=== PATIENT | male | born 1935 | race Caucasian/White ===

== ENCOUNTER 2019-03-30 08:27 | Inpatient (IN) | payer MEDICARE, MEDICAID ==
[~2019-03-30] VITALS: Ht 170.2 cm; Wt 77.2 kg
[2019-03-30] VITALS (42 sets, daily range): BP systolic 82–146; BP diastolic 37–97
[2019-03-30] MEDS ORDERED: IV NORMAL SALINE 1000 ML BAG IV ONE ×2 (08:45→10:30)
--- NOTE | 2019-03-30 08:49 | NUR ---
Patient BIB [id number] from [facility] for c/o sob. Patient nonverbal upon presenting to the department, patient confused, and per EMS he is confused on baseline. Patient appears agitated and constantly trying to remove non-rebreather mask. Patient tachypneic, with short breaths. Crackles noted bilaterally. Cardiovascular perfusion <3 cap refill. Patient in bed at lowest position, sr upx2, call light within reach. Fall precautions implemented per protocol.
[2019-03-30] MEDS ORDERED: ONDANSETRON 4 MG/2 ML VIAL ONE (08:54)
[2019-03-30] MEDS ORDERED: MORPHINE SULFATE 4 MG/1 ML DISP.SYRIN ONE (08:54)
[2019-03-30] MEDS ORDERED: CLOP75TA33 PO (08:57)
[2019-03-30] MEDS ORDERED: NA P133E RC (08:57)
[2019-03-30] MEDS ORDERED: METO-356 PO (08:57)
[2019-03-30] MEDS ORDERED: BISA10SU61 RC (08:57)
[2019-03-30] MEDS ORDERED: ACET-2154 PO ×2 (08:57)
[2019-03-30] MEDS ORDERED: AMIN30LI27 PO (08:57)
[2019-03-30] MEDS ORDERED: OLME20TA13 PO (08:57)
[2019-03-30] MEDS ORDERED: ASCO500P18 PO (08:57)
[2019-03-30] MEDS ORDERED: MAGN400O6 PO (08:57)
[2019-03-30] MEDS ORDERED: MULT-30 PO (08:57)
[2019-03-30] MEDS ORDERED: ASPI-605 PO (08:57)
[2019-03-30] MEDS ORDERED: MONT10TA25 PO (08:57)
[2019-03-30] MEDS ORDERED: VANCOMYCIN IV 1,000 MG in IV DEXTROSE 5% 250 ML IV ONE (09:00)
[2019-03-30] MEDS ORDERED: IPRA0.2S48 IH (09:00)
[2019-03-30] MEDS ORDERED: ONDANSETRON 4 MG/2 ML VIAL IV ONE (09:00)
[2019-03-30] MEDS ORDERED: PIPERACILLIN SODIUM/TAZOBACTAM 3.375 G in IV DEXTROSE 5% 50 ML IV ONE (09:00)
[2019-03-30] MEDS ORDERED: MORPHINE SULFATE 2 MG/1 ML DISP.SYRIN IV ONE (09:00)
[2019-03-30] MEDS ORDERED: ALBU2.5V38 IH (09:00)
[2019-03-30] MEDS ORDERED: PIPERACILLIN/TAZOBACTAM/D5W 50 ML IV ONE (09:01)
[2019-03-30] MEDS ORDERED: VANCOMYCIN IV 200 ML ONE (09:02)
[2019-03-30 09:20] LABS: CARBON DIOXIDE 18 mmol/L (21-32); CHLORIDE 102 mmol/L (98-107); CREATININE 2.6 mg/dL (0.6-1.3); GLUCOSE 128 mg/dL (74-106); POTASSIUM 4.8 mmol/L (3.5-5.1); UREA NITROGEN, BLOOD 53 mg/dL (7-18)
[2019-03-30 09:42] LABS: BASOPHILS % (AUTO) 0.1 % (0.0-2.0); HEMATOCRIT 34.9 % (36.7-47.1); HEMOGLOBIN 11.6 g/dL (12.5-16.3); LYMPHOCYTES # (AUTO) 0.8 K/uL (20.0-40.0); LYMPHOCYTES % (AUTO) 2.7 % (20.5-51.5); MEAN CORPUSCULAR HEMOGLOBIN 31.1 uug (23.8-33.4); MEAN CORPUSCULAR HGB CONC 33 g/dL (32.5-36.3); MEAN CORPUSCULAR VOLUME 93.6 fL (73.0-96.2); MONOCYTES % (AUTO) 3.3 % (0.0-11.0); NEUTROPHILS # (AUTO) 27.5 K/uL (1.8-8.9); NEUTROPHILS % (AUTO) 93.9 % (38.5-71.5); PLATELET COUNT (AUTO) 271 K/uL (152-348); RED BLOOD CELL COUNT(AUTO) 3.73 MIL/uL (4.06-5.63); WHITE BLOOD COUNT (AUTO) 29.2 K/uL (3.6-10.2)
[2019-03-30] MEDS ORDERED: DILTIAZEM HCL 50 MG IV ONE (09:43)
[2019-03-30] MEDS ORDERED: DILTIAZEM HCL 25 MG IV IV ONE ×2 (09:45→10:30)
[2019-03-30 09:58] LABS: BAND % (MANUAL) 12 % (0-10); METAMYELOCYTES % 1 % (0-1); MONOCYTES % (MANUAL) 2 % (2-10); NEUTROPHILS % (MANUAL) 85 % (42-75)
[2019-03-30] MEDS ORDERED: DIGOXIN 500 MCG/2 ML AMP ONE (09:58)
[2019-03-30] MEDS ORDERED: DIGOXIN 500 MCG/2 ML AMP IV ONE (10:00)
[2019-03-30 10:06] LABS: ALKALINE PHOSPHATASE 65 U/L (50-136); BILIRUBIN,DIRECT 0.3 mg/dL (0.0-0.2); BILIRUBIN,TOTAL 0.7 mg/dL (0.1-1.0)
[2019-03-30 10:07] LABS: ALANINE AMINOTRANSFERASE < 6 U/L (16-63); ASPARTATE AMINOTRANSFERASE 21 U/L (15-37)
[2019-03-30 10:09] LABS: TOTAL PROTEIN, SERUM 13.4 g/dL (6.4-8.2)
--- NOTE | 2019-03-30 10:10 | NUR ---
Dr. Castano paged for admission, awaiting call back.
--- NOTE | 2019-03-30 10:20 | NUR ---
Family here at bedside.
[2019-03-30] MEDS ORDERED: DILTIAZEM HCL IV 125 MG in IV DEXTROSE 5% 100 ML IV ONE (10:30)
[2019-03-30] MEDS ORDERED: LORAZEPAM 2 MG/1 ML VIAL ONE (10:43)
[2019-03-30] MEDS ORDERED: LORAZEPAM 2 MG/1 ML VIAL IV ONE (10:45)
--- NOTE | 2019-03-30 10:49 | NUR ---
2nd call for Eyad, still awaiting call back
--- NOTE | 2019-03-30 11:02 | NUR ---
Report given to MAUREEN Parks
[2019-03-30] MEDS ORDERED: DILTIAZEM HCL IV 125 MG in IV NORMAL SALINE 100 ML IV PRN (11:15)
[2019-03-30 11:17] LABS: *BILIRUBIN,URIN NEGATIVE (NEGATIVE); *BLOOD, URINE 3+ (NEGATIVE); *CLARITY,URINE SLIGHTLY CLOUDY (CLEAR); *COLOR,URINE YELLOW (YELLOW); *KETONES,URINE NEGATIVE (NEGATIVE); *UROBILINOGEN,URINE 0.2 E.U./dl (NORMAL); LEUKOCYTE ESTERASE ,URINE NEGATIVE (NEGATIVE); NITRITE, URINE NEGATIVE (NEGATIVE); PH,URINE 5.5 (5.0-8.0); UGLUCOSE NEGATIVE (NEGATIVE)
[2019-03-30 11:35] LABS: RBC,URINE 20-50 /HPF (0-3)
[2019-03-30 11:36] LABS: BACTERIA,URINE NONE SEEN /HPF (NONE SEEN); SQUAMOUS EPITHELIAL CELL,UR FEW /HPF (NONE SEEN)
[2019-03-30 11:37] LABS: MUCUS,URINE FEW /LPF (0-FEW); URINE AMORPHOUS URATE FEW /HPF
--- NOTE | 2019-03-30 12:10 | NUR ---
admitted to room ccu4 for PNA, CHF and atrial fib. on Cardizem drip at 10 mg/min
--- NOTE | 2019-03-30 12:22 | NUR ---
Patient transported to CCU with MICHI Waite. In stable condition.
[2019-03-30] MEDS ORDERED: PHENYLEPHRINE IV 40 MG in IV DEXTROSE 5% 250 ML IV PRN (12:45)
[2019-03-30] MEDS ORDERED: FUROSEMIDE 20 MG/2 ML VIAL IV ONE (12:45)
[2019-03-30] MEDS ORDERED: Z GUARD REMEDY PASTE 57 GM TUBE TOP PRN (12:45)
[2019-03-30] MEDS ORDERED: ONDANSETRON 4 MG/2 ML VIAL IV PRN (12:45)
[2019-03-30] MEDS ORDERED: ACETAMINOPHEN 650 MG SUPP.RECT RC PRN (12:45)
--- NOTE | 2019-03-30 13:00 | NUR ---
family ( and son ) at the bedside. updated with patient's condition
[2019-03-30] MEDS: LEVALBUTEROL HCL NEB 0.63 MG/3 ML NEBU NEB PRN (13:24)
--- NOTE | 2019-03-30 13:24 | NUR ---
RT here to give patient breathing treatmnet and suctioning. patient congested and desaturating doen to the 80%
--- NOTE | 2019-03-30 13:30 | NUR ---
PHARMACY CLINICAL NOTES: (VANCOMYCIN DOSING) S: 84-year-old male, who is having cough and respiratory distress. MD ordered Vancomycin and Zosyn. O: BUN/SCR 53/2.6, WBC 29.2, T 98, t 1/2 34.6 HRS, DOSING WT 150 LBS A/P: PT received 1000 mg IVPB in ER @ 10:00. Regimen of Vancomycin 1gm q40 will yield peak of 38 and trough of 17. Will dose next Vancomycin 40 hr post dose in ER today. will continue monitoring renal fxn and adjust the dose as necessary.
--- NOTE | 2019-03-30 13:43 | NUR ---
started on neosynephrine drip to keep sbp >90
[2019-03-30] MEDS: AMIODARONE HCL IV 900 MG in IV DEXTROSE 5% 482 ML IV PRN (13:44)
--- NOTE | 2019-03-30 13:44 | NUR ---
cordarone started at 1 mg/min. cardizem dcd
[2019-03-30] MEDS: IV D5/ 0.9% NACL 1,000 ML IV PRN (13:57)
--- NOTE | 2019-03-30 14:00 | NUR ---
echo done at the bedside. ef 60%
[2019-03-30] MEDS: MORPHINE SULFATE 2 MG/1 ML DISP.SYRIN IV PRN ×2 (14:57→19:33)
--- NOTE | 2019-03-30 14:57 | NUR ---
patient woke up and very restless. medicated with morphine 1mg IV. wrist restraints applied for safety
[2019-03-30 16:27] LABS: ABG BASE EXCESS -7.1 mmol/L; ABG HCO3 18.2 mmol/L; ABG PCO2 35.8 mmHg (35.0-45.0); ABG PH 7.323 (7.350-7.450); ABG PO2 170.8 mmHg (75.0-100.0); ABG SITE LEFT RADIAL; ABG TOTAL HEMOGLOBIN 10.9 G/dL (13.5-18.0); COHb 0.6 % (0.5-1.5); MetHb 0.2 % (0.0-1.5); O2Hb 98.5 % (94.0-97.0)
[2019-03-30] MEDS ORDERED: PIPERACILLIN/TAZO 2.25 G in IV DEXTROSE 5% 50 ML IV SCH (18:00)
[2019-03-30] MEDS ORDERED: PHENYLEPHRINE IV 80 MG in IV DEXTROSE 5% 250 ML IV PRN (18:45)
--- NOTE | 2019-03-30 19:30 | NUR ---
Report received. Patient admitted today for SEPSIS, PNA and CHF. Extremely restless, non verbal with bilateral soft restraints for safety. On continuous Amiodarone drip via PICC line ANISHA. Neosynephrine drip held for now BP 130 systole. Will monitor closely. Assessment done. Addendum: 03/31/19 at 0506 by PRERNA ARELLANO RN Amended: Links added.
--- NOTE | 2019-03-30 19:33 | NUR ---
Medicated with Morphine for generalized discomfort. Suctioned nasally by Tc RT for thick bloody secretions. With increased restlessness during suctioning. Reoriented PRN.
[2019-03-30] MEDS: PHENYLEPHRINE IV 80 MG in IV DEXTROSE 5% 250 ML IV PRN (20:22)
[2019-03-30] MEDS: PIPERACILLIN SODIUM/TAZOBACTAM 3.375 G in IV DEXTROSE 5% 50 ML IV SCH (21:12)
[2019-03-30] MEDS: LORAZEPAM 2 MG/1 ML VIAL IV PRN (21:13)
[2019-03-31] VITALS (82 sets, daily range): BP systolic 82–152; BP diastolic 35–81
[2019-03-31] MEDS: IV D5/ 0.9% NACL 1,000 ML IV PRN ×2 (04:11→17:55)
[2019-03-31] MEDS: MORPHINE SULFATE 2 MG/1 ML DISP.SYRIN IV PRN ×4 (04:11→22:58)
[2019-03-31] MEDS: LORAZEPAM 2 MG/1 ML VIAL IV PRN ×3 (05:20→20:09)
[2019-03-31 05:29] LABS: ALANINE AMINOTRANSFERASE < 6 U/L (16-63); ALKALINE PHOSPHATASE 46 U/L (50-136); ASPARTATE AMINOTRANSFERASE 25 U/L (15-37); BILIRUBIN,TOTAL 0.4 mg/dL (0.2-1.0); CARBON DIOXIDE 21 mmol/L (21-32); CHLORIDE 105 mmol/L (98-107); CHOLESTEROL < 50 mg/dL (<200); CREATININE 3.2 mg/dL (0.6-1.3); GLUCOSE 103 mg/dL (74-106); HDL CHOLESTEROL 13 mg/dL (40-60); MAGNESIUM 1.6 mg/dL (1.8-2.4); PHOSPHOROUS 7.3 mg/dL (2.5-4.9); POTASSIUM 4.8 mmol/L (3.5-5.1); TRIGLYCERIDES 76 MG/DL (30-150); UREA NITROGEN, BLOOD 67 mg/dL (7-18)
[2019-03-31 05:45] LABS: BASOPHILS % (AUTO) 0.1 % (0.0-2.0); EOSINOPHILS % (AUTO) 0.2 % (0.0-7.0); HEMATOCRIT 28.4 % (36.7-47.1); HEMOGLOBIN 9.1 g/dL (12.5-16.3); LYMPHOCYTES # (AUTO) 1.4 K/uL (20.0-40.0); LYMPHOCYTES % (AUTO) 7.1 % (20.5-51.5); MEAN CORPUSCULAR HEMOGLOBIN 30.2 uug (23.8-33.4); MEAN CORPUSCULAR HGB CONC 32 g/dL (32.5-36.3); MEAN CORPUSCULAR VOLUME 94.3 fL (73.0-96.2); MONOCYTES # (AUTO) 0.7 K/uL (2.0-10.0); MONOCYTES % (AUTO) 3.6 % (0.0-11.0); NEUTROPHILS # (AUTO) 17.7 K/uL (1.8-8.9); PLATELET COUNT (AUTO) 226 K/uL (152-348); RED BLOOD CELL COUNT(AUTO) 3.01 MIL/uL (4.06-5.63); WHITE BLOOD COUNT (AUTO) 19.8 K/uL (3.6-10.2)
--- NOTE | 2019-03-31 07:13 | NUR ---
No neuro changes; remains non verbal. Still with periods of restlessness. Medicated with Ativan IV PRN.
--- NOTE | 2019-03-31 08:36 | NUR ---
medicated for generalized discomfort. patient has mittens on but very restless Addendum: 03/31/19 at 0836 by MIGDALIA MARTINEZ RN Amended: Links added.
[2019-03-31 09:00] LABS: ABG HCO3 19.7 mmol/L; ABG PCO2 50.5 mmHg (35.0-45.0); ABG PO2 90.4 mmHg (75.0-100.0); ABG SITE RIGHT BRACHIAL; ABG TOTAL HEMOGLOBIN 10.8 G/dL (13.5-18.0); COHb 0.9 % (0.5-1.5); MetHb 0.1 % (0.0-1.5); O2Hb 95.5 % (94.0-97.0)
[2019-03-31] MEDS: PANTOPRAZOLE SODIUM 40 MG VIAL IV SCH (09:10)
[2019-03-31] MEDS: PIPERACILLIN SODIUM/TAZOBACTAM 3.375 G in IV DEXTROSE 5% 50 ML IV SCH (09:11)
--- NOTE | 2019-03-31 09:13 | NUR ---
seen by dr Landry. orders received Addendum: 03/31/19 at 0913 by MIGDAILA MARTINEZ RN Amended: Links added.
[2019-03-31] MEDS: MAGNESIUM SULFATE/D5W 100 ML IV SCH ×2 (09:32→12:19)
[2019-03-31] MEDS: LEVALBUTEROL HCL NEB 0.63 MG/3 ML NEBU NEB PRN (10:35)
--- NOTE | 2019-03-31 12:19 | NUR ---
PHARMACY CLINICAL NOTES: (VANCOMYCIN DOSING) S: 84-year-old male, who is having cough and respiratory distress. ordered Vancomycin and Zosyn. O: BUN/SCR 67/3.2, WBC 19.8, T 97.9 , DOSING WT 150 LBS A/P: Since renal function is further decreased, will start dosing by fall off random level. Vancomycin random is on order for today at 1500. Will follow the level for further dosing. Addendum: 03/31/19 at 1628 by SAIGE PEREZ ADM VANCOMYCIN RANDOM TODAY AT 1500:8.6. WILL ADMINISTER 1GRAM TODAY . RX WILL DECIDE NEXT RANDOM TOMORROW WHEN AM LABS ARE AVAILABLE(SCR IS TRENDING UP)
[2019-03-31] MEDS: AMIODARONE HCL IV 900 MG in IV DEXTROSE 5% 482 ML IV PRN (12:26)
--- NOTE | 2019-03-31 12:36 | NUR ---
medicated for restlessness. Addendum: 03/31/19 at 1236 by MIGDALIA MARTINEZ RN Amended: Links added.
--- NOTE | 2019-03-31 13:46 | NUR ---
seen by dr Barber, cardiology. amiodarone fernando collins/shilpa Addendum: 03/31/19 at 1346 by MIGDALIA MARTINEZ RN Amended: Links added.
--- NOTE | 2019-03-31 15:15 | NUR ---
medicated for generalized restlessness Addendum: 03/31/19 at 1516 by MIGDALIA MARTINEZ RN Amended: Links added.
[2019-03-31] MEDS ORDERED: VANCOMYCIN IV 1,000 MG in IV DEXTROSE 5% 250 ML IV ONE (17:30)
[2019-03-31] MEDS: PHENYLEPHRINE IV 80 MG in IV DEXTROSE 5% 250 ML IV PRN ×4 (17:54→23:27)
[2019-03-31] MEDS: ALBUTEROL SULFATE 1.25 MG/3 ML NEBU NEB PRN (19:21)
--- NOTE | 2019-03-31 20:00 | NUR ---
RECEIVED PT VERBALLY NONRESPONSIVE ON MITTENS HEATH. FOR PT SAFETY. ON BIPAP I-15/E-5, RATE-16, FIO2-100% W/ O2 SAT OF 99%.SUCTIONED ORALLY & INTRANASALLY USING RED LING W/ MODERATE THICK TANNISH MUCOUS..ON NEOSYNEPHRINE DRIP @ 60 MCQ/MIN.VIA PICC LINE ON ANISHA. REPOSITIONED ON HIS SIDE W/ HOB ELEVATED.
[2019-03-31] MEDS: MEROPENEM 500 MG in IV NORMAL SALINE 50 ML IV SCH (21:05)
--- NOTE | 2019-03-31 23:05 | NUR ---
HS CARE DONE. SUCTIONED & REPOSITIONED W/ HOB ELEVATED.
--- NOTE | 2019-03-31 23:27 | NUR ---
Received patient on 100% NRB mask. Placed on Bipap 15/5,rr 16, Titrating O2 to maintain SpO2 > 92%. Suctioned small to moderate amounts of thick blood. Patient tolerating ordered settings. PRN treatments administered and tolerated well, no adverse reactions. Will continue to monitor.
[2019-04-01] VITALS (89 sets, daily range): BP systolic 89–196; BP diastolic 26–155
[2019-04-01] MEDS: ALBUTEROL SULFATE 1.25 MG/3 ML NEBU NEB PRN (00:57)
[2019-04-01] MEDS ORDERED: VANCOMYCIN IV 1,000 MG in IV DEXTROSE 5% 250 ML IV SCH (02:00)
[2019-04-01] MEDS: LORAZEPAM 2 MG/1 ML VIAL IV PRN ×3 (03:08→16:00)
--- NOTE | 2019-04-01 04:45 | NUR ---
AM CARE DONE. ORAL CARE DONE REPOSITIONED W/ HOB ELEVATED.
[2019-04-01 04:57] LABS: BASOPHILS % (AUTO) 0.1 % (0.0-2.0); EOSINOPHILS # (AUTO) 0.1 K/uL (0.0-0.7); EOSINOPHILS % (AUTO) 0.5 % (0.0-7.0); HEMATOCRIT 30.3 % (36.7-47.1); HEMOGLOBIN 9.6 g/dL (12.5-16.3); LYMPHOCYTES # (AUTO) 1.1 K/uL (20.0-40.0); LYMPHOCYTES % (AUTO) 4.7 % (20.5-51.5); MEAN CORPUSCULAR HEMOGLOBIN 30.1 uug (23.8-33.4); MEAN CORPUSCULAR HGB CONC 32 g/dL (32.5-36.3); MEAN CORPUSCULAR VOLUME 95.4 fL (73.0-96.2); MONOCYTES # (AUTO) 1.1 K/uL (2.0-10.0); MONOCYTES % (AUTO) 4.9 % (0.0-11.0); NEUTROPHILS # (AUTO) 20.2 K/uL (1.8-8.9); NEUTROPHILS % (AUTO) 89.8 % (38.5-71.5); PLATELET COUNT (AUTO) 224 K/uL (152-348); RED BLOOD CELL COUNT(AUTO) 3.18 MIL/uL (4.06-5.63); WHITE BLOOD COUNT (AUTO) 22.6 K/uL (3.6-10.2)
[2019-04-01 05:08] LABS: CARBON DIOXIDE 20 mmol/L (21-32); CHLORIDE 107 mmol/L (98-107); CREATININE 3.7 mg/dL (0.6-1.3); GLUCOSE 105 mg/dL (74-106); MAGNESIUM 2.2 mg/dL (1.8-2.4); PHOSPHOROUS 6.2 mg/dL (2.5-4.9); POTASSIUM 5.2 mmol/L (3.5-5.1); UREA NITROGEN, BLOOD 78 mg/dL (7-18)
--- NOTE | 2019-04-01 07:20 | NUR ---
Received patient on on Bipap 15/5,rr 16, Patient tolerating ordered settings. PRN Morphine to be administered as patient is restless and possibly in bed with thrashing and grimacing. Patients jenkins is draining, air mattress inflated and scd's on. RT at bedside ready to do deep suctioning as patient sounds very congested.
--- NOTE | 2019-04-01 07:25 | NUR ---
Pt received on BIPAP with ordered settings. Tolerating settings well. Sxn'd thick bloody secretions. Protecta-Gel in place. Massaged Pt's face periodically.
[2019-04-01] MEDS: MORPHINE SULFATE 2 MG/1 ML DISP.SYRIN IV PRN ×3 (07:47→21:19)
--- NOTE | 2019-04-01 08:25 | NUR ---
Reported possible afib on monitor, asked Dr. Landry for EKG order.
[2019-04-01 08:53] LABS: ABG BASE EXCESS -9.4 mmol/L; ABG HCO3 16.1 mmol/L; ABG PCO2 33.7 mmHg (35.0-45.0); ABG PH 7.297 (7.350-7.450); ABG PO2 156.3 mmHg (75.0-100.0); ABG SITE RIGHT BRACHIAL; COHb 0.8 % (0.5-1.5); MetHb 0.1 % (0.0-1.5); O2Hb 98.7 % (94.0-97.0); VENT MODE BIPAP
[2019-04-01] MEDS: PANTOPRAZOLE SODIUM 40 MG VIAL IV SCH (09:11)
[2019-04-01] MEDS: MEROPENEM 500 MG in IV NORMAL SALINE 50 ML IV SCH ×2 (09:14→21:17)
[2019-04-01] MEDS ORDERED: AMIODARONE HCL IV 900 MG in IV DEXTROSE 5% 482 ML IV PRN (09:15)
[2019-04-01] MEDS: IV D5/ 0.9% NACL 1,000 ML IV PRN (09:15)
--- NOTE | 2019-04-01 09:15 | NUR ---
Received orders from Dr. Landry to restart amioderone without bolus. Unable to get a hold of [facility] reported to Dr. Landry.
--- NOTE | 2019-04-01 10:57 | NUR ---
PHARMACY CLINICAL NOTES: (VANCOMYCIN DOSING) S: 84-year-old male, who is having cough and respiratory distress. ordered Vancomycin and Zosyn. O: BUN/SCR 78/3.7, WBC 22.6, T 97.8 , DOSING WT 150 LBS Random 03/31 @1500: 8.6 Random today @1500 pending A/P: Since renal function continues to decrease, will continue dosing by fall off random level. Last dose of vanco was yesterday of 1gm @1730. Vancomycin random is on order for today at 1500. Will follow the level for further dosing. Addendum: 04/01/19 at 1529 by ALANNA MACKAY ADM RANDOM CAME BACK 14.5 TODAY AT 1455. DOSED 1GM VANCO X1 FOR TODAY AT 1600. WILL CHECK SCR IN AM AND DECIDE WHEN TO ORDER NEXT RANDOM. WILL FOLLOW
--- NOTE | 2019-04-01 11:07 | NUR ---
Dr. Huizar at bedside. Notified of thick blood sputum secretions.
--- NOTE | 2019-04-01 12:10 | NUR ---
Dr. Fleming at bedside.
[2019-04-01] MEDS ORDERED: VANCOMYCIN IV 1,000 MG in IV DEXTROSE 5% 250 ML IV ONE (16:00)
--- NOTE | 2019-04-01 16:00 | NUR ---
Trial of converstion to nonrebreather. patient desaturated to 83%, returned patient back to bipap.
--- NOTE | 2019-04-01 18:40 | NUR ---
Patient has been restless all day despite administration of ativan and morphine as ordered. BP maintained as ordered and Amioderon started this morning. Patient continues to be on Bipap at this time, jenkins draining, air mattress inflated, No oral intake, or BM noted this shift. mittens for safety and patient pulling on lines. 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 Critical blood cultures reported to Cheya, and received orders to continue vanco per pharmacy dosing.
[2019-04-01] MEDS: PHENYLEPHRINE IV 80 MG in IV DEXTROSE 5% 250 ML IV PRN (19:15)
--- NOTE | 2019-04-01 19:45 | NUR ---
DR HUNT WAS HERE TO SEE PATIENT , GIVEN AN UPDATE ON PATIENT'S CONDITION
--- NOTE | 2019-04-01 20:00 | NUR ---
BIPAP SETTING IS 15/5 AT 70 % FIO2
--- NOTE | 2019-04-01 20:00 | NUR ---
BILATERAL EYES ARE RED , CLEAN AND KEPT MOIST AND PAT DRY
[2019-04-01] MEDS: MUPIROCIN 2% OINT 22 GM TUBE NS SCH (21:19)
--- NOTE | 2019-04-01 23:00 | NUR ---
US TECH WAS NOTIFIEDOF STAT ORDER OF US KIDNEYS
[2019-04-02] VITALS (89 sets, daily range): BP systolic 85–165; BP diastolic 23–96
--- NOTE | 2019-04-02 | NUR ---
US OF THE KIDNEYS DONE
[2019-04-02] MEDS: LORAZEPAM 2 MG/1 ML VIAL IV PRN ×2 (00:23→08:43)
[2019-04-02] MEDS: IV D5/ 0.9% NACL 1,000 ML IV PRN ×2 (00:54→16:10)
[2019-04-02] MEDS: MORPHINE SULFATE 2 MG/1 ML DISP.SYRIN IV PRN ×5 (02:06→23:27)
--- NOTE | 2019-04-02 02:39 | NUR ---
PT ON CONT B/PAP WITH FULL MASK IN PLACE, PT VERY RESTLESS, AMD MOVING A LOT IN BED, PT DOES BREATH RAPID AT TIMES, [id number], NO SETTINGS ON BI/PAP CHANGES, FIO2 @ 70, ADJUST MASK AT TIMES.Cassie GOYAL RCP Addendum: 04/02/19 at 0241 by DRISS GOYAL RT Amended: Links added.
--- NOTE | 2019-04-02 03:09 | NUR ---
* Exhibits decreased drainage at site * Exhibits no s/s of infection * Exhibits a decrease in lesion size * Maintains nutritional status * Maintains hydration status * Maintains optimal lab values Addendum: 04/02/19 at 0309 by SULEIMAN HARRIS RN Amended: Links added. Addendum: 04/02/19 at 0310 by SULEIMAN HARRIS RN Amended: Links alice.
[2019-04-02 05:13] LABS: BASOPHILS % (AUTO) 0.1 % (0.0-2.0); EOSINOPHILS % (AUTO) 0.2 % (0.0-7.0); HEMATOCRIT 32.7 % (36.7-47.1); HEMOGLOBIN 10.5 g/dL (12.5-16.3); LYMPHOCYTES # (AUTO) 0.8 K/uL (20.0-40.0); LYMPHOCYTES % (AUTO) 3.1 % (20.5-51.5); MEAN CORPUSCULAR HEMOGLOBIN 30.3 uug (23.8-33.4); MEAN CORPUSCULAR HGB CONC 32 g/dL (32.5-36.3); MEAN CORPUSCULAR VOLUME 94.4 fL (73.0-96.2); MONOCYTES # (AUTO) 1.5 K/uL (2.0-10.0); MONOCYTES % (AUTO) 5.9 % (0.0-11.0); NEUTROPHILS # (AUTO) 22.5 K/uL (1.8-8.9); NEUTROPHILS % (AUTO) 90.7 % (38.5-71.5); PLATELET COUNT (AUTO) 240 K/uL (152-348); RED BLOOD CELL COUNT(AUTO) 3.47 MIL/uL (4.06-5.63); WHITE BLOOD COUNT (AUTO) 24.9 K/uL (3.6-10.2)
[2019-04-02 05:23] LABS: CARBON DIOXIDE 19 mmol/L (21-32); CHLORIDE 109 mmol/L (98-107); CREATININE 3.4 mg/dL (0.6-1.3); GLUCOSE 112 mg/dL (74-106); PHOSPHOROUS 4.6 mg/dL (2.5-4.9); POTASSIUM 5.2 mmol/L (3.5-5.1)
[2019-04-02 05:33] LABS: UREA NITROGEN, BLOOD 82 mg/dL (7-18)
--- NOTE | 2019-04-02 06:11 | NUR ---
NOTIFIED THE DOCTOR OF LAB RESULTS THIS MORNING , NO ORDERS RECEIVED
--- NOTE | 2019-04-02 07:00 | NUR ---
RESTING , AMIODARONE , NEOSYNEPHRINE AND IV FLUIDS ARE RUNNING , IV INTACT BIPAP 15/5 70%
--- NOTE | 2019-04-02 07:25 | NUR ---
Received patient on on Bipap 15/5,rr 16, Patient tolerating ordered settings. PRN Morphine to be administered as patient is restless and possibly in bed with thrashing and grimacing. Patients jenkins is draining, air mattress inflated and scd's on. Patient sounds very congested.
[2019-04-02] MEDS: ALBUTEROL SULFATE 1.25 MG/3 ML NEBU NEB PRN (07:40)
[2019-04-02] MEDS: PANTOPRAZOLE SODIUM 40 MG VIAL IV SCH (08:28)
[2019-04-02] MEDS: MUPIROCIN 2% OINT 22 GM TUBE NS SCH ×2 (08:34→20:26)
[2019-04-02] MEDS: MEROPENEM 500 MG in IV NORMAL SALINE 50 ML IV SCH ×2 (08:41→20:23)
[2019-04-02 09:03] LABS: ABG BASE EXCESS -9.8 mmol/L; ABG HCO3 16.9 mmol/L; ABG PCO2 39.6 mmHg (35.0-45.0); ABG PH 7.247 (7.350-7.450); ABG PO2 66.1 mmHg (75.0-100.0); ABG SITE LEFT RADIAL; ABG TOTAL HEMOGLOBIN 11.5 G/dL (13.5-18.0); COHb 0.8 % (0.5-1.5); MetHb 0.1 % (0.0-1.5); O2Hb 91.3 % (94.0-97.0); VENT MODE BIPAP
[2019-04-02 09:12] LABS: BAND % (MANUAL) 9 % (0-10); LYMPHOCYTES % (MANUAL) 4 % (20-40); MONOCYTES % (MANUAL) 6 % (2-10); NEUTROPHILS % (MANUAL) 81 % (42-75)
--- NOTE | 2019-04-02 09:15 | NUR ---
PT ON BIPAP WITH SETTINGS ON IPAP15, EPAP5, RATE 16, FIO2 70%. PT TOLERATING BIPAP FINE. PRN BREATHING TX ADMINISTERED. NT SUCTIONED PERFORMED. PT HAD LARGE AMOUNT OF THICK YELLOW, PINK TINGED SECRETIONS. ABG DONE. CRITICAL VALUES ENDORSED TO MAUREEN Shankar . FIO2 INCREASED TO 80%. WILL CONTINUE TO MONITOR.
--- NOTE | 2019-04-02 09:38 | NUR ---
PHARMACY CLINICAL NOTES: (VANCOMYCIN DOSING) S: Continue Vancomycin dosing on 84 yr old patient for septic shock, GPC bacteremia and HCAP(ID note) O: BUN/SCR 82/3.4, WBC 24.9 T 97.9 , DOSING WT 150 LBS Random 03/31 @1500: 8.6 Random 04/01 @1500 :14.5 A/P: Since renal function continues to decrease, will continue dosing by fall off random level. Last dose of vanco was yesterday of 1gm @1600. Vancomycin random is on order for today at 1800. Will follow the level for further dosing. Addendum: 04/02/19 at 1913 by STEVE PENA Vancomycin random level @ 18:25 was 19.0 . Will schedule the next Vancomycin @ 2300. and will continue to follow up.
[2019-04-02] MEDS ORDERED: AMIODARONE HCL IV 900 MG in IV DEXTROSE 5% 482 ML IV ONE (12:00)
[2019-04-02] MEDS ORDERED: MORPHINE SULFATE 2 MG/1 ML DISP.SYRIN IV PRN (12:15)
[2019-04-02] MEDS ORDERED: LORAZEPAM 2 MG/1 ML VIAL IV PRN (12:15)
[2019-04-02] MEDS ORDERED: LEVALBUTEROL HCL NEB 0.63 MG/3 ML NEBU NEB PRN (13:30)
[2019-04-02] MEDS ORDERED: AMIODARONE HCL IV 900 MG in IV DEXTROSE 5% 482 ML IV PRN (14:08)
[2019-04-02] MEDS: PHENYLEPHRINE IV 80 MG in IV DEXTROSE 5% 250 ML IV PRN (16:08)
[2019-04-02] MEDS ORDERED: POLYVINYL ALCOHOL OPHT DROPS 15 ML BOTTLE EACHEYE PRN (16:30)
--- NOTE | 2019-04-02 19:26 | NUR ---
Patient has been restless all day despite administration of ativan and morphine as ordered. BP maintained as ordered and Amioderon started this morning. Patient continues to be on Bipap at this time, jenkins draining, air mattress inflated, No oral intake, or BM noted this shift. mittens for safety and patient pulling on lines. Safety precautions maintained and patient on isolation MRSA nares.
--- NOTE | 2019-04-02 20:00 | NUR ---
PT IS ON A BIPAP 15/5 RATE OF 16 FIO2 OF 80 % , RESTING AND SLEEPING COMFORTABLY A THIS TIME
--- NOTE | 2019-04-02 20:00 | NUR ---
Estela clemens REPROGRAPHICS ASSOCIATE IS HERE TO SEE PATIENT
--- NOTE | 2019-04-02 20:59 | NUR ---
PT ON CONT BI/PAP WITH FULL MASK, WITH SETTINGS, 15/5, RATE 16. FIO2 @ 80, PT TENDS TO BREATH RAPID AT TIMES, RESTLESS AT TIMES, NO CHANGES MADE, PT GIVEN SEDATION AT TIMES, ADJUST MASK AT TIMES, . Cassie GOYAL RCP Addendum: 04/02/19 at 2102 by DRISS GOYAL RT Amended: Links added.
[2019-04-02] MEDS ORDERED: VANCOMYCIN IV 1,000 MG in IV DEXTROSE 5% 250 ML IV ONE (23:00)
--- NOTE | 2019-04-02 23:00 | NUR ---
RESTLESS , TACHYCARDIC , MEDICATED FOR RELAXATION , CHANGED POSITION
[2019-04-03] VITALS (65 sets, daily range): BP systolic 0–136; BP diastolic 0–70
--- NOTE | 2019-04-03 01:41 | NUR ---
* Exhibits granulation/healing at site * Exhibits decreased drainage at site * Exhibits no s/s of infection * Exhibits a decrease in lesion size * Maintains nutritional status Addendum: 04/03/19 at 0142 by SULEIMAN HARRIS RN Amended: Links added. Addendum: 04/03/19 at 0142 by SULEIMAN HARRIS RN Amended: Links alice.
--- NOTE | 2019-04-03 01:42 | NUR ---
* Maintains vital signs WNL * Evidences no purulent drainage from wounds, incisions, and tubes * Maintains optimal lab values Addendum: 04/03/19 at 0142 by SULEIMAN HARRIS RN Amended: Links added.
[2019-04-03 05:25] LABS: BASOPHILS % (AUTO) 0.1 % (0.0-2.0); EOSINOPHILS # (AUTO) 0.1 K/uL (0.0-0.7); EOSINOPHILS % (AUTO) 0.3 % (0.0-7.0); HEMATOCRIT 32.7 % (36.7-47.1); HEMOGLOBIN 10.3 g/dL (12.5-16.3); LYMPHOCYTES # (AUTO) 0.9 K/uL (20.0-40.0); LYMPHOCYTES % (AUTO) 4.1 % (20.5-51.5); MEAN CORPUSCULAR HEMOGLOBIN 30.1 uug (23.8-33.4); MEAN CORPUSCULAR HGB CONC 32 g/dL (32.5-36.3); MEAN CORPUSCULAR VOLUME 95.4 fL (73.0-96.2); MONOCYTES # (AUTO) 1.2 K/uL (2.0-10.0); MONOCYTES % (AUTO) 5.3 % (0.0-11.0); NEUTROPHILS # (AUTO) 20.1 K/uL (1.8-8.9); NEUTROPHILS % (AUTO) 90.2 % (38.5-71.5); PLATELET COUNT (AUTO) 262 K/uL (152-348); RED BLOOD CELL COUNT(AUTO) 3.43 MIL/uL (4.06-5.63); WHITE BLOOD COUNT (AUTO) 22.3 K/uL (3.6-10.2)
--- NOTE | 2019-04-03 06:00 | NUR ---
DOCTOR MOISÉS WAS CALLED TO INFORM OF RECENT LABS WORKS , WAITING FOR CALL BACK
[2019-04-03 06:25] LABS: ALANINE AMINOTRANSFERASE < 6 U/L (16-63); ALKALINE PHOSPHATASE 70 U/L (50-136); ASPARTATE AMINOTRANSFERASE 14 U/L (15-37); BILIRUBIN,TOTAL 0.5 mg/dL (0.2-1.0); CARBON DIOXIDE 19 mmol/L (21-32); CHLORIDE 112 mmol/L (98-107); CREATININE 4.2 mg/dL (0.6-1.3); GLUCOSE 121 mg/dL (74-106); MAGNESIUM 2.1 mg/dL (1.8-2.4); POTASSIUM 5.8 mmol/L (3.5-5.1); TOTAL PROTEIN, SERUM 9.1 g/dL (6.4-8.2)
[2019-04-03 06:28] LABS: UREA NITROGEN, BLOOD 96 mg/dL (7-18)
--- NOTE | 2019-04-03 06:41 | NUR ---
CXR DONE , UNABLE TO SUCTION EVEN WITH THE HELP OF RT AND INSERTING A NASAL TRUMPET AND SUCTIONING ORALLY
--- NOTE | 2019-04-03 07:15 | NUR ---
DR CURIEL CALLED AND NO ORDERS RECEIVED
--- NOTE | 2019-04-03 07:30 | NUR ---
RECEIVED PATIENT ON CONTINUOUS BI/PAP WITH FULL MASK, WITH SETTINGS, 15/5, RATE 16. FIO2 @ 80, PT IS TACHYPNEIC, RESTLESS, BUT SATURATION IS 95%. VITALS STABLE WITH NEOSYNEPHRINE @55, D5NS @ 70CC/HR, AND AMIODERONE @ 0.5. PATIENT RESPONDS TO NOISE AND TOUCH WITH INCOMPREHENSIBLE SOUNDS AND OPENS EYES. SCDS ON. CORTES DRAINING.
[2019-04-03 09:04] LABS: ABG BASE EXCESS -13.3 mmol/L; ABG HCO3 15.4 mmol/L; ABG PCO2 47.4 mmHg (35.0-45.0); ABG PH 7.131 (7.350-7.450); ABG PO2 68.3 mmHg (75.0-100.0); ABG SITE RIGHT RADIAL; ABG TOTAL HEMOGLOBIN 11.8 G/dL (13.5-18.0); COHb 0.9 % (0.5-1.5); MetHb 0.2 % (0.0-1.5); O2Hb 91.3 % (94.0-97.0); VENT MODE BIPAP
[2019-04-03] MEDS: PANTOPRAZOLE SODIUM 40 MG VIAL IV SCH (09:24)
[2019-04-03] MEDS: IV D5/ 0.9% NACL 1,000 ML IV PRN (09:24)
[2019-04-03] MEDS: MEROPENEM 500 MG in IV NORMAL SALINE 50 ML IV SCH (09:29)
[2019-04-03] MEDS: MUPIROCIN 2% OINT 22 GM TUBE NS SCH (09:34)
[2019-04-03] MEDS ORDERED: SODIUM POLYSTYRENE SULF POWDER 15 GM UDC PO ONE (12:00)
[2019-04-03] MEDS ORDERED: BUMETANIDE 1 MG/4 ML VIAL IV ONE (12:00)
[2019-04-03] MEDS ORDERED: SODIUM POLYSTYRENE SULFONATE ENEMA 30 G/120 ML BOTTLE RC ONE (12:15)
--- NOTE | 2019-04-03 14:45 | NUR ---
Patients BP declining rapidly despite increase in Neosynephrine. Contacted son Esdras to inform him that his father's condition is declining and we are continuing to do supportive treatment and will continue to do so and add additional bp support as needed. patient's son stated that he thinks it might be a good idea to start him on Hospice if he declining and that he will call me back with a decision.
--- NOTE | 2019-04-03 14:50 | NUR ---
Taliclaire'ts son called this life underwriter back and said to just call him when it is done and over with and to place the patient on hospice. Dr. Landry notified of the conversation and stated that he will contact the Hospice and continue supportive care as indicated.
[2019-04-03] MEDS: PHENYLEPHRINE IV 80 MG in IV DEXTROSE 5% 250 ML IV PRN (14:52)
--- NOTE | 2019-04-03 15:51 | NUR ---
PHARMACY CLINICAL NOTES: (VANCOMYCIN DOSING) S: Continue Vancomycin dosing on 84 yr old patient for septic shock, GPC bacteremia and HCAP(ID note) O: BUN/SCR 96/4.2, WBC 22.3 T 98.2 , DOSING WT 150 LBS Random 03/31 @1500: 8.6 Random 04/01 @1500 :14.5 Random 04/02 @ 1825: 19.0 A/P: Since renal function continues to decrease, will continue dosing by fall off random level. Last dose of vanco was yesterday of 1gm @2300. No dose for today per today's renal function. Will check scr in am and decide when to order next random. Will follow
[2019-04-03] MEDS ORDERED: AMIODARONE HCL IV 900 MG in IV DEXTROSE 5% 482 ML IV SCH (17:00)
--- NOTE | 2019-04-03 17:00 | NUR ---
Despite interventions of increasing oxygenation on BIpap to 100% and increasing levels of Neosynephrine, patient became asystole.
--- NOTE | 2019-04-03 17:05 | NUR ---
Patient was apneic for 5 minutes, pupils fixed and dilated no audible heart tones, or breath sounds for 1 minute. no palpable pulsefor 1 minute. no corneal reflexes, Patient pronounced @ 1700
== END 2019-04-03 19:00 | disposition expired | DRG 871 ==
LOC: ER 08:27 → CCU 11:40
PROVIDERS: ADMIT Internal Medicine; ATTEND Internal Medicine
PROC: 3E033RZ Introduction of Antiarrhythmic into Peripheral Vein, Percutaneous Approach (ICD-10-PCS; principal; 2019-03-30)
PROC: 02HV33Z Insertion of Infusion Device into Superior Vena Cava, Percutaneous Approach (ICD-10-PCS; 2019-03-30)
PROC: 5A09457 Assistance with Respiratory Ventilation, 24-96 Consecutive Hours, Continuous Positive Airway Pressure (ICD-10-PCS; 2019-03-31)
DX: A41.9 Sepsis, unspecified organism (principal); J69.0 Pneumonitis due to inhalation of food and vomit; R65.21 Severe sepsis with septic shock; I21.A1 Myocardial infarction type 2; J96.02 Acute respiratory failure with hypercapnia; J96.01 Acute respiratory failure with hypoxia; N17.0 Acute kidney failure with tubular necrosis; G92 Toxic encephalopathy; E43 Unspecified severe protein-calorie malnutrition; I50.33 Acute on chronic diastolic (congestive) heart failure; C90.00 Multiple myeloma not having achieved remission; D68.59 Other primary thrombophilia; I13.0 Hypertensive heart and chronic kidney disease with heart failure and stage 1 through stage 4 chronic kidney disease, or unspecified chronic kidney disease; Z66 Do not resuscitate; I48.0 Paroxysmal atrial fibrillation; Z87.891 Personal history of nicotine dependence; Z98.42 Cataract extraction status, left eye; Z98.41 Cataract extraction status, right eye; I27.20 Pulmonary hypertension, unspecified; J84.10 Pulmonary fibrosis, unspecified; Z74.09 Other reduced mobility; D63.8 Anemia in other chronic diseases classified elsewhere; N18.9 Chronic kidney disease, unspecified; Z22.322 Carrier or suspected carrier of Methicillin resistant Staphylococcus aureus; F03.90 Unspecified dementia, unspecified severity, without behavioral disturbance, psychotic disturbance, mood disturbance, and anxiety; E86.0 Dehydration; E87.5 Hyperkalemia; I07.1 Rheumatic tricuspid insufficiency; L89.159 Pressure ulcer of sacral region, unspecified stage; Z79.02 Long term (current) use of antithrombotics/antiplatelets; I25.10 Atherosclerotic heart disease of native coronary artery without angina pectoris
CPT/HCPCS: 36415; 36600; 70030-TC; 71045; 76604; 76770; 83605; 83735; 84100; 84443; 85025; 85730; 87040; 87070; 87086; 87400; 93005; 93307; 94640; 94660; A4663; C9113; G0378; J0282; J1160; J1940; J2060; J2185; J2270; J2370; J2405; J2543; J3370; J3475; J3490; J7030; J7042; J7060; J7614

== ENCOUNTER 2019-04-03 16:00 | Inpatient (IN) | payer OTHER | END 2019-04-03 19:00 | disposition E | DRG 871 | LOC: HOSPICE3 16:00 | PROVIDERS: ADMIT Internal Medicine; ATTEND Internal Medicine | DX: A41.9 Sepsis, unspecified organism (principal); Z51.5 Encounter for palliative care; Z66 Do not resuscitate; G92 Toxic encephalopathy; J69.0 Pneumonitis due to inhalation of food and vomit; R65.21 Severe sepsis with septic shock; N17.0 Acute kidney failure with tubular necrosis; E43 Unspecified severe protein-calorie malnutrition; I50.33 Acute on chronic diastolic (congestive) heart failure; P29.30 Pulmonary hypertension of newborn; I21.A1 Myocardial infarction type 2; D68.59 Other primary thrombophilia; I13.0 Hypertensive heart and chronic kidney disease with heart failure and stage 1 through stage 4 chronic kidney disease, or unspecified chronic kidney disease; C90.00 Multiple myeloma not having achieved remission; Z74.09 Other reduced mobility; N18.9 Chronic kidney disease, unspecified; D63.8 Anemia in other chronic diseases classified elsewhere; F03.90 Unspecified dementia, unspecified severity, without behavioral disturbance, psychotic disturbance, mood disturbance, and anxiety; Z87.891 Personal history of nicotine dependence; L89.159 Pressure ulcer of sacral region, unspecified stage; I48.0 Paroxysmal atrial fibrillation | CPT/HCPCS: G0378 ==